=== PATIENT | male | born 1995 | race American Indian/Alaskan Native ===

== ENCOUNTER 2019-01-14 16:39 | Emergency (ER) | payer OTHER ==
[2019-01-14 18:55] VITALS: BP 125/56
--- NOTE | 2019-01-14 18:56 | Emergency Department Report ---
Blank Doc - Documentation Documentation: 23 y o male presents to ed cc of left eye swollen x last night, states he noti shanae a bump on his cheek yesterday and overnight swelling occured facial ct acc eval
--- NOTE | 2019-01-14 20:15 | Cat Scan Report ---
PROCEDURE: CT FACIAL BONES WO CON TECHNIQUE: Axial helical imaging through the face with sagittal and coronal reformatted images obtai kevin. HISTORY: facial swelling COMPARISONS: None FINDINGS: There is left facial soft tissue swelling/edema. There is a focus of increased thickness of the dermis and underlying subcutaneous fat anterior to the left maxillary sinus. Small abscess in this region cannot be excluded on this study without IV contr ast. The paranasal sinuses are notable for small polyps or retention cysts in the maxillary sinuses bilate rally.. The paranasal sinuses are otherwise unremarkable. The nasal septum is midline. The bony structures are unremarkable. The orbital contents are unremarkable. IMPRESSION: 1. Left facial soft tissue swelling with the appearance of increased thickness of the dermis and incr eased density the subdermal subcutaneous fat anterior to the left maxillary sinus. Small abscess in t his region cannot be excluded on this study without contrast. If there is a clinical concern for abscess, CT of the face with IV contrast would be helpful for furt her evaluation. 2. Small polyps or retention cyst in the maxillary sinuses bilaterally. This document is electronically signed by Ruba Camacho MD., January 14 2019 08:13:43 PM ET
== END 2019-01-14 22:00 | disposition left against medical advice (07) ==
LOC: ED 16:39
DX: R22.0 Localized swelling, mass and lump, head (principal); Z53.21 Procedure and treatment not carried out due to patient leaving prior to being seen by health care provider
CPT/HCPCS: 70486